=== PATIENT | male | born 1945 | race Caucasian/White ===

== ENCOUNTER 2016-12-03 09:15 | Outpatient (CLI) | payer MEDICARE ==
[2016-12-03] VITALS (14 sets, daily range): BP systolic 141–186; BP diastolic 82–104
[~2016-12-03] VITALS: Ht 175.3 cm; Wt 89.4 kg
[2016-12-03] MEDS ORDERED: PRAV20TA2 PO (09:30)
[2016-12-03] MEDS ORDERED: OMEP40CA5 PO (09:30)
[2016-12-03 09:52] LABS: BASO % 1 % (0-3); EOS % 6 % (0-3); HEMATOCRIT 46.4 % (39.0-53.0); HEMOGLOBIN 15.7 g/dL (13.0-17.5); LYMPH # 0.8 x10^3/uL (1.0-4.8); LYMPH % 18 % (24-48); MEAN CORPUSCULAR HEMOGLOBIN 31 pg (25-35); MEAN CORPUSCULAR HGB CONC 34 g/dL (31-37); MEAN CORPUSCULAR VOLUME 92 fL (79-100); MONO % 10 % (0-9); NEUT % 66 % (31-73); PLATELET COUNT 187 x10^3/uL (140-400); RED BLOOD COUNT 5.06 x10^6/uL (4.30-5.70); WHITE BLOOD COUNT 4.6 x10^3/uL (4.0-11.0)
[2016-12-03 10:03] LABS: PROTHROMBIN TIME PATIENT 12.5 SEC (11.7-14.0)
[2016-12-03 10:43] LABS: CALCIUM 9.4 mg/dL (8.5-10.1); CREATININE 1.1 mg/dL (0.7-1.3)
[2016-12-03] MEDS ORDERED: IOHEXOL 300 MG/ML 100ML VIAL. ONE (11:35)
[2016-12-03] MEDS ORDERED: LIDOCAINE 2% 20 ML VIAL. ONE (11:35)
[2016-12-03] MEDS ORDERED: VERAPAMIL 5 MG/2 ML VIAL. ONE (11:44)
[2016-12-03] MEDS ORDERED: HEPARIN for IV BOLUS 10,000 UNIT/10 ML VIAL. ONE (11:44)
[2016-12-03] MEDS ORDERED: fentaNYL PF VIAL 100 MCG/2 ML VIAL ONE (11:44)
[2016-12-03] MEDS ORDERED: NITROGLYCERIN 200 MCG/2 ML SYRINGE FOR CATH/VASC LAB. ONE (11:44)
[2016-12-03] MEDS ORDERED: MIDAZOLAM HCL/PF 2 MG/2 ML VIAL. ONE (11:44)
[2016-12-03] MEDS ORDERED: NITROGLYCERIN 200 MCG/2 ML SYRINGE FOR CATH/VASC LAB. IART ONE (12:00)
[2016-12-03] MEDS ORDERED: LIDOCAINE 2% 20 ML VIAL. IJ ONE (12:00)
[2016-12-03] MEDS ORDERED: MIDAZOLAM HCL/PF 2 MG/2 ML VIAL. IV ONE (12:00)
[2016-12-03] MEDS ORDERED: fentaNYL PF VIAL 100 MCG/2 ML VIAL IV ONE (12:00)
[2016-12-03] MEDS ORDERED: HEPARIN for IV BOLUS 10,000 UNIT/10 ML VIAL. IART ONE (12:00)
[2016-12-03] MEDS ORDERED: VERAPAMIL 5 MG/2 ML VIAL. IART ONE (12:00)
[2016-12-03] MEDS ORDERED: IV 1/2 NORMAL SALINE 1,000 ML IV SCH (14:10)
--- NOTE | 2016-12-03 14:10 | PDOC ---
MODERATE SEDATION ASSESSMENT RISKS/ALTERNATIVES Risks/Alternatives Risks and alternatives of this type of sedation and procedure discussed with: RISK/ALTERNATIVES: Patient H & P ON CHART H & P H & P on chart and reviewed for co-morbid conditions and appropriate labs. H&P ON CHART: Yes STATUS PREG STATUS ASSESSED: N/A MEDS/ALLERGIES REVIEWED Meds/Allergies Reviewed Medications and Allergies including time and route of recently administered narcotics and sedatives. MEDS/ALLERGIES REVIEWED: Yes ASA RATING ASA RATING: II AIRWAY ASSESSMENT Airway Assessment Airway patency, oral function limitations, presence of caps, crowns, dentures, partials, and ability to extend neck assessed. AIRWAY ASSESSMENT: Yes MALLAMPATI SCORE MALLAMPATI SCORE: II PRE-SEDATION ASSESSMENT PRE-SEDATION ASSESSMENT: Yes LEANNE MANE MD Dec 03, 2016 14:10
[2016-12-03] MEDS ORDERED: NITROGLYCERIN SUBLINGUAL 0.4 MG BOTTLE OF 25. SL PRN (14:15)
--- NOTE | 2016-12-03 14:19 | CARD ---
APPROVED REPORT Procedure(s) performed: Left heart catheterization, selective coronary angiography and left ventricul ography via right transradial approach Moderate Sedation: 37 Minutes INDICATION The indication(s) include : Unstable angina. PROCEDURE NARRATIVE After explaining the risks, benefits and alternative options, informed consent was obtained from bryon ent. Patient was brought to the cardiac Direct Service Provider and right wrist was prepped and draped in the usual fashion after confirming a positive modified Awais's test. Arterial access was obtained in the [facility] t radial artery and a 6 Northern Irish sheath was inserted. 6 Northern Irish Chris and 5 Northern Irish JR4 catheters were used to perform selective angiography of the left and right coronary arteries. 6 Northern Irish pigtail cath eter was used to perform left ventriculography. Patient tolerated the procedure well. Hemostasis wa s achieved using TR band. There were no immediate complications. The following findings were noted. FINDINGS 1. Hemodynamics: Left ventricular end-diastolic pressure of 21 mmHg. No pullback gradient across th e aortic valve. 2. Left ventriculography: Normal left ventricle systolic function with ejection fraction estimated at 60%. No significant mitral regurgitation seen. 3. Coronary angiography: a. The left main coronary artery arose from the left sinus of Valsalva, gave rise to the left anteri or descending, ramus intermedius and left circumflex arteries and did not show any significant stenos is. b. The left anterior descending artery did not show any significant stenosis. c. The ramus intermedius artery was a large caliber vessel that showed 30% stenosis in the proximal segment. d. The left circumflex artery was a small-caliber vessel and showed chronic total occlusion of the o btuse marginal branch with faint reconstitution from left to left collaterals. e. The right coronary artery was a large and dominant vessel arising from the right sinus of Valsalv a that showed 20% stenosis in the proximal segment. Conclusion 1. 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 2. Normal left ventricle systolic function with ejection fraction estimated at 60%. Recommendations Medical Therapy
== END 2016-12-03 15:30 | disposition home or self-care (01) ==
LOC: CCL 09:15
PROVIDERS: ATTEND Internal Medicine Cardiovascular Disease
DX: I20.0 Unstable angina (principal); E78.00 Pure hypercholesterolemia, unspecified; E03.9 Hypothyroidism, unspecified; Z88.1 Allergy status to other antibiotic agents; Z90.49 Acquired absence of other specified parts of digestive tract; Z88.0 Allergy status to penicillin; Z88.2 Allergy status to sulfonamides
CPT/HCPCS: 36415; 80048; 85025; 85610; 93458; 99152; 99153; C1769; C1892; J1644; J2250; J3010; J3490; J2001

== ENCOUNTER → 2017-05-12 | Outpatient (CLI) | payer MEDICARE | END | disposition home or self-care (01) | LOC: ECHO 10:12 | DX: I11.9 Hypertensive heart disease without heart failure (principal); E03.9 Hypothyroidism, unspecified; E78.00 Pure hypercholesterolemia, unspecified | CPT/HCPCS: 93306 ==

== ENCOUNTER → 2018-08-19 | Outpatient (CLI) | payer MEDICARE ==
[2016-12-03 15:15] VITALS: BP 186/104
[~2018-08-19] MED LIST: OMEP40CA5 PO; PRAV20TA2 PO
--- NOTE | 2018-08-19 15:13 | CARD ---
MR#: [id number] Date of Study: 08/19/2018 Ordering Physician: LEANNE BERRIOS, Referring Physician: LEANNE BERRIOS Tech: Alicia Hardwick KEMAR APPROVED REPORT EXAM: Two-dimensional and M-mode echocardiogram with Doppler and color Doppler. Other Information Quality : AverageHR: 50bpm Rhythm : Bradycardia INDICATION CAD 2D DIMENSIONS RVDd3.3 (2.9-3.5cm)Left Atrium(2D)4.6 (1.6-4.0cm) IVSd1.9 (0.7-1.1cm)Aortic Root(2D)3.8 (2.0-3.7cm) LVDd4.0 (3.9-5.9cm)LVOT Diameter2.2 (1.8-2.4cm) PWd1.1 (0.7-1.1cm)LVDs2.3 (2.5-4.0cm) FS (%) 42.2 %SV51.8 ml LVEF(%)70.0 (>50%) M-Mode DIMENSIONS Left Atrium(MM)5.00 (2.5-4.0cm)Aortic Root3.98 (2.2-3.7cm) Aortic Valve AoV Peak Vj.151.6cm/sAoV VTI33.8cm AO Peak GR.9.2mmHgLVOT Peak Vj.90.6cm/s AO Mean GR.5mmHgAVA (VMAX)2.31cm2 Mitral Valve MV E Jwdjitoz77.6cm/sMV DECEL ZYZZ165vg MV A Nuouslxp79.9cm/sE/A Ratio0.8 Pulmonary Valve PV Peak Viprzzfb06.9cm/s Tricuspid Valve TR P. Hmjuudnh069xp/sRAP DOZGQSBY7efDw TR Peak Gr.17qxPzYKIC55jvCr Pulmonary Vein S1 Efqfsbly56.9cm/sD2 Ovopenfs83.9cm/s PVa xzuvxlgs357thnp LEFT VENTRICLE The left ventricle is normal size. Proximal septal thickening is noted. The left ventricular systolic function is normal. The Ejection Fraction is 65-70%. There is normal LV segmental wall motion. Trans mitral Doppler flow pattern is Grade I-abnormal relaxation pattern. RIGHT VENTRICLE The right ventricle is normal size. There is normal right ventricular wall thickness. The right ventr icular systolic function is normal. ATRIA The left atrium is moderately dilated. The right atrium is mildly dilated. The interatrial septum is intact with no evidence for an atrial septal defect or patent foramen ovale as noted on 2-D or Dopple r imaging. AORTIC VALVE The aortic valve is normal in structure and function. The aortic valve is trileaflet. Doppler and Col or Flow revealed no significant aortic regurgitation. There is no significant aortic valvular stenosi s. MITRAL VALVE The mitral valve is normal in structure and function. There is no evidence of mitral valve prolapse. There is no mitral valve stenosis. Doppler and Color-flow revealed trace mitral regurgitation. TRICUSPID VALVE The tricuspid valve is normal in structure and function. Doppler and Color Flow revealed trace tricus pid regurgitation. The PA pressure was estimated at 24 mmHg. There is no tricuspid valve prolapse or vegetation. There is no tricuspid valve stenosis. PULMONIC VALVE The pulmonary valve is normal in structure and function. Doppler and Color Flow revealed trace pulmon ic valvular regurgitation. There is no pulmonic valvular stenosis. GREAT VESSELS The aortic root is mildly enlarged. The ascending aorta is Mildly dilated at 4.3cm. The IVC is normal in size and collapses >50% with inspiration. PERICARDIAL EFFUSION There is no evidence of significant pericardial effusion. Critical Notification Critical Value: No <Conclusion> The left ventricular systolic function is normal. The Ejection Fraction is 65-70%. There is normal LV segmental wall motion. Transmitral Doppler flow pattern is Grade I-abnormal relaxation pattern. Trace mitral regurgitation. Trace tricuspid regurgitation. The PA pressure was estimated at 24 mmHg. The ascending aorta is mildly dilated at 4.3cm. There is no evidence of significant pericardial effusion. Signed by : Leanne Berrios, Electronically Approved : 08/19/2018 15:13:02
== END | disposition home or self-care (01) ==
LOC: ECHO 13:49
PROVIDERS: ATTEND Internal Medicine Cardiovascular Disease
DX: I77.89 Other specified disorders of arteries and arterioles (principal); I25.118 Atherosclerotic heart disease of native coronary artery with other forms of angina pectoris
CPT/HCPCS: 93306

== ENCOUNTER → 2019-02-24 | Outpatient (CLI) | payer MEDICARE ==
[2016-12-03 15:15] VITALS: BP 186/104
[~2019-02-24] MED LIST changes: +OMEP40CA45 PO; -OMEP40CA5 PO; +REGADENOSON 0.4 MG/5 ML DISP.SYRIN. IV ONE
--- NOTE | 2019-02-24 13:28 | RAD ---
MR#: [id number] Date of Study: 02/24/2019 Ordering Physician: LEANNE MANE, Referring Physician: JORDY PELAEZ Tech: ROBIN Barone APPROVED REPORT Test Type: Pharmacological Stress Nurse/Tech: Camille Perales R.N. Test Indications: CAD Cardiac History: high chol, htn, Medications: see ehr Medical History: see ehr Resting ECG: SB Resting Heart Rate: 49 bpm Resting Blood Pressure: 135/91mmHg Pretest Chest Pain: No chest pain Nurse/Tech Notes lungs cta, heart tones regular Consent: The procedure was explained to the patient in lay terms. Informed consent was witnessed. Hossein eout was entered into [employer]. History and Stress Test performed by THUAN Milton, NILSA (R) (N) Pharm. Details Pharmacologic stress testing was performed using 0.4mg per 5ml of regadenoson given intravenously ove r 7-10 seconds. Stress Symptoms No chest pain or symptoms. POST EXERCISE Reason for Termination: Infusion complete Target HR: No Max HR: 68 bpm Max Blood Pressure: 173/91mmHg Chest Pain: No. Arrhythmia: No. ST Change: No. INTERPRETATION Stress EKG Conclusion: The resting EKG showed a sinus bradycardia with nonspecific ST-T wave changes. The stress EKG showed no significant changes from baseline. No EKG evidence of stressed induced ischemia. Imaging Protocol IMAGE PROTOCOL: Rest Tc-99m/stress Tc-99m 1 day Rest: Stress: Viability: Radiopharm.Tc99m IwzcregqlYm80y Sestamibi Bbbt14hMx 33mCi Duration 15min. 13min. Img Date 02/24/2019 02/24/2019 Inj-Img Uwxt08bhr. 60min. Rest Admin Site:IV - Right HandAdministrator:THUAN Milton, NILSA (R)(N) Stress Admin Site: IV - Right HandAdministrator: THUAN Milton, NILSA (R)(N) STRESS DATA End Diast. Vol.110.0mlLVEDV index BSA54.0ml End Syst. Vol.34.0mlLVESV index BSA17.0ml Myocardial Ogcz729.0gEject. Kiybpgue97.0% Stress Scores Regional WT0.00Summed WT5.00 Regional WM0.00Summed WM0.00 LV Perfusion The stress images showed no significant defects. The rest images showed no significant defects. Nuclear imaging shows no reversible ischemia or infarct. Wall Motion Left ventricular systolic function is normal with an ejection fraction of 69%. LV Perf. Quant 17 Seg. SSS0.00 17 Seg. SRS0.00 17 Seg. SDS0.00 Stress Defect Extent (% LAD)0.00Rest Defect Extent (% LAD)5.00Rev. Defect Extent (% LAD)0.00 Stress Defect Extent (% LCX) 0.00Rest Defect Extent (% LCX)10.00Rev. Defect Extent (% LCX)0.00 Stress Defect Extent (% RCA)0.00Rest Defect Extent (% RCA)0.00Rev. Defect Extent (% RCA)0.00 Stress Defect Extent (% SARITA)0.00Rest Defect Extent (% SARITA)3.50Rev. Defect Extent (% SARITA)0.00 Conclusion 1. No EKG evidence of stress-induced ischemia. 2. Nuclear imaging shows no reversible ischemia or infarct. 3. Normal left ventricular systolic function with an ejection fraction of 69%. 4. Low risk Lexiscan nuclear stress test. Signed by : Ashutosh Lombardi MD Electronically Approved : 02/24/2019 13:28:18
== END | disposition home or self-care (01) ==
LOC: NM 09:31
PROVIDERS: ATTEND Internal Medicine Cardiovascular Disease
DX: I25.118 Atherosclerotic heart disease of native coronary artery with other forms of angina pectoris (principal); R00.1 Bradycardia, unspecified; I10 Essential (primary) hypertension; E78.00 Pure hypercholesterolemia, unspecified
CPT/HCPCS: 78452; 93017; A9500; J2785

== ENCOUNTER → 2019-08-25 | Outpatient (CLI) | payer MEDICARE ==
[2016-12-03 15:15] VITALS: BP 186/104
[~2019-08-25] MED LIST changes: -REGADENOSON 0.4 MG/5 ML DISP.SYRIN. IV ONE
--- NOTE | 2019-08-25 11:32 | RAD ---
MR#: [id number] Date of Study: 08/25/2019 Ordering Physician: LEANNE MANE, Referring Physician: LEANNE MANE, Tech: Luigi Bowen MBA, RDMS, RVT, RDCS, RTR APPROVED REPORT Patient Location: OUT-PATIENT Laterality:Bilateral Indications CAD Doppler Spectral Velocity Analysis Right Left pCCA 98/15 cm/spCCA 139/31 cm/s mCCA 125/24 cm/smCCA 121/30 cm/s dCCA 104/24 cm/sdCCA 103/24 cm/s Bulb 94/21 cm/sBulb 91/24 cm/s ECA 83/ cm/sECA 113/ cm/s pICA 79/21 cm/spICA 79/24 cm/s Mattie 69/21 cm/smICA 73/23 cm/s dICA 64/19 cm/sdICA 69/22 cm/s Vert. 48/ cm/sVert. 53/ cm/s Subcl. 184/ cm/sSubcl. 114/ cm/s ICA/CCA 0.63ICA/CCA 0.57 Findings Grayscale images of the bilateral carotid vessels demonstrate mild diffuse intimal hyperplasia and pl aque. No obvious obstructive disease is noted. Normal spectral waveforms and color Doppler are note d. Normal ICA to CCA ratios bilaterally. Critical Notification Critical Value: No <Conclusion> 1. No significant carotid occlusive disease. Signed by : Yazan Cordoba, Electronically Approved : 08/25/2019 11:31:36
--- NOTE | 2019-08-25 13:51 | CARD ---
MR#: [id number] Date of Study: 08/25/2019 Ordering Physician: LEANNE BERRIOS, Referring Physician: LEANNE BERRIOS, Tech: Fallon Powell APPROVED REPORT EXAM: Two-dimensional and M-mode echocardiogram with Doppler and color Doppler. Other Information Quality : AverageHR: 70bpm INDICATION Cardiac Disease: CAD RISK FACTORS Hypertension Hyperlipidemia 2D DIMENSIONS Left Atrium(2D)4.9 (1.6-4.0cm)IVSd1.6 (0.7-1.1cm) Aortic Root(2D)4.0 (2.0-3.7cm)LVDd5.1 (3.9-5.9cm) LVOT Diameter2.2 (1.8-2.4cm)PWd1.3 (0.7-1.1cm) LVDs2.6 (2.5-4.0cm)FS (%) 49.0 % SV98.8 mlLVEF(%)80.2 (>50%) Aortic Valve AoV Peak Vj.150.8cm/sAoV VTI30.0cm AO Peak GR.9.1mmHgLVOT VTI 23.16cm AO Mean GR.5mmHg Mitral Valve MV E Mccqtizy59.7cm/sMV E Peak Gr.3mmHg MV DECEL ZQRY058lsIT A Kjvefmjy54.2cm/s MV E Mean Gr.1mmHgE/A Ratio0.8 TDI Lateral E' P. V3.86cm/sMedial E' P. V5.60cm/s E/Lateral E'15.2E/Medial E'10.5 Tricuspid Valve TR P. Vnezrsqj886rs/sRAP CXDABLFV2rgBk TR Peak Gr.66owQyAIVC96dpJr Pulmonary Vein S1 Moyjeeus11.0cm/sS2 Mpfwuujy47.22cm/s D2 Hgasbdhx07.2cm/sPVa yplwousl811jxup LEFT VENTRICLE The left ventricle is normal size. There is mild to moderate concentric left ventricular hypertrophy. The left ventricular systolic function is normal. The Ejection Fraction is 60-65%. There is normal L V segmental wall motion. Transmitral Doppler flow pattern is Grade I-abnormal relaxation pattern. RIGHT VENTRICLE The right ventricle is normal size. There is normal right ventricular wall thickness. The right ventr icular systolic function is normal. ATRIA The left atrium is borderline dilated. The right atrium is mildly dilated. The interatrial septum is intact with no evidence for an atrial septal defect or patent foramen ovale as noted on 2-D or Dopple r imaging. AORTIC VALVE The aortic valve is normal in structure and function. Doppler and Color Flow revealed no significant aortic regurgitation. There is no significant aortic valvular stenosis. Calculated aortic valve area is 2.9 cm2 with maximum pressure gradient of 9 mmHg and mean pressure gradient of 6 mmHg. MITRAL VALVE The mitral valve is normal in structure and function. There is no evidence of mitral valve prolapse. There is no mitral valve stenosis. Doppler and Color-flow revealed trace mitral regurgitation. TRICUSPID VALVE The tricuspid valve is normal in structure and function. Doppler and Color Flow revealed trace tricus pid regurgitation with an estimated PAP of 29 mmHg. There is no tricuspid valve stenosis. PULMONIC VALVE The pulmonic valve is not well visualized. Doppler and Color Flow revealed no pulmonic valvular regur gitation. GREAT VESSELS The aortic root is mildly enlarged. The IVC is normal in size and collapses >50% with inspiration. PERICARDIAL EFFUSION There is no evidence of significant pericardial effusion. Critical Notification Critical Value: No <Conclusion> The left ventricular systolic function is normal. The Ejection Fraction is 60-65%. There is normal LV segmental wall motion. Transmitral Doppler flow pattern is Grade I-abnormal relaxation pattern. Trace mitral regurgitation. Trace tricuspid regurgitation with an estimated PAP of 29 mmHg. There is no evidence of significant pericardial effusion. Signed by : Leanne Berrios, Electronically Approved : 08/25/2019 13:50:44
== END | disposition home or self-care (01) ==
LOC: US 09:40
PROVIDERS: ATTEND Internal Medicine Cardiovascular Disease
DX: I65.23 Occlusion and stenosis of bilateral carotid arteries (principal); I25.118 Atherosclerotic heart disease of native coronary artery with other forms of angina pectoris; I77.3 Arterial fibromuscular dysplasia; I51.7 Cardiomegaly
CPT/HCPCS: 93306; 93880

== ENCOUNTER → 2019-09-17 | Outpatient (CLI) | payer MEDICARE ==
[2016-12-03 15:15] VITALS: BP 186/104
--- NOTE | 2019-09-17 13:50 | RAD ---
MR#: [id number] Date of Study: 09/17/2019 Ordering Physician: LEANNE MANE, Referring Physician: LEANNE MANE, Tech: Fallon Santiago RDMS, KEARA, RTR APPROVED REPORT Patient Location: OUT-PATIENT Indications Bilateral Leg Pain VELOCITY AND DOPPLER WAVEFORM ANALYSIS RIGHT cm/secWaveformSeverity LEFT cm/secWaveform Severity dCFA 104.1dCFA Prof Fem Art. 80.4Prof Fem Art. 123.1 Fem Art Prox. 112.4Fem Art Prox. 118.2 Fem Art Mid. 111.6Fem Art Mid. 98.3 Fem Art Dist. 129.7Fem Art Dist. 92.5 Pop Art(AK) 77.7Pop Art(AK) 81.8 SAFETY AND HEALTH MANAGER Prox. 48.8PTA Prox. 61.3 SAFETY AND HEALTH MANAGER Dist. 134.6PTA Dist. 103.5 Per Art Prox. 75.2Per Art Prox. 81.6 CHUYITA Prox. 60.7ATA Prox. 32.7 DPA 9DPA 45 Findings Grayscale images of the bilateral lower extremity arterial vessels reveals mild diffuse atheroscleros is. On the right side there are triphasic waveforms with three-vessel runoff below the knee. The dorsali s pedis appears to be near occluded. On the left side mostly triphasic and biphasic waveforms with three-vessel runoff below the knee. Incidental right sided Moreno's cyst noted at 5 x 3 x 1.3 cm Critical Notification Critical Value: No <Conclusion> 1. Distal small vessel disease on the right side but otherwise no focal high-grade obstruction noted Signed by : Yazan Cordoba, Electronically Approved : 09/17/2019 13:49:58
== END ==
LOC: US 15:11
PROVIDERS: ATTEND Internal Medicine Cardiovascular Disease
DX: M71.21 Synovial cyst of popliteal space [Baker], right knee (principal); I73.9 Peripheral vascular disease, unspecified
CPT/HCPCS: 93925

== ENCOUNTER → 2020-08-30 | Outpatient (CLI) | payer MEDICARE ==
[2016-12-03 15:15] VITALS: BP 186/104
[~2020-08-30] MED LIST changes: -OMEP40CA45 PO; +OMEP40CA7 PO
[2020-08-30 12:59] LABS: CHOLESTEROL/HDL RATIO 4.5
--- NOTE | 2020-08-30 17:16 | CARD ---
MR#: [id number] Date of Study: 08/30/2020 Ordering Physician: LEANNE MANE, Referring Physician: LEANNE MANE Tech: Alix Pedraza [facility] APPROVED REPORT EXAM: Two-dimensional and M-mode echocardiogram with Doppler and color Doppler. Other Information Quality : GoodHR: 56bpm Rhythm : NSR INDICATION Palpitations RISK FACTORS Hypertension 2D DIMENSIONS RVDd3.7 (2.9-3.5cm)Left Atrium(2D)4.4 (1.6-4.0cm) IVSd1.8 (0.7-1.1cm)Aortic Root(2D)3.9 (2.0-3.7cm) LVDd4.9 (3.9-5.9cm)LVOT Diameter2.2 (1.8-2.4cm) PWd1.6 (0.7-1.1cm)LVDs3.0 (2.5-4.0cm) FS (%) 39.0 %SV79.3 ml Aortic Valve AoV Peak Vj.143.1cm/sAoV VTI34.7cm AO Peak GR.8.2mmHgLVOT Peak Vj.100.9cm/s AO Mean GR.4mmHgAVA (VMAX)2.71cm2 Mitral Valve MV E Xdurqzfx01.4cm/sMV DECEL OCHS860ie MV A Dbhwbplj21.0cm/sE/A Ratio1.1 Pulmonary Valve PV Peak Agjsiugl82.2cm/s Tricuspid Valve TR P. Rsyzqmlq118sl/sTR Peak Gr.31mmHg LEFT VENTRICLE The left ventricle is normal size. There is mild concentric left ventricular hypertrophy. The left ve ntricular systolic function is normal. Estimated ejection fraction 55-60%. There is normal LV segmen kimberley wall motion. The left ventricular diastolic function and filling is normal for age. RIGHT VENTRICLE The right ventricle is normal size. There is normal right ventricular wall thickness. The right ventr icular systolic function is normal. ATRIA The left atrium size is normal. The right atrium size is normal. The interatrial septum is intact wit h no evidence for an atrial septal defect or patent foramen ovale as noted on 2-D or Doppler imaging. AORTIC VALVE The aortic valve is normal in structure and function. Doppler and Color Flow revealed no significant aortic regurgitation. There is no significant aortic valvular stenosis. MITRAL VALVE The mitral valve is normal in structure and function. There is no evidence of mitral valve prolapse. There is no mitral valve stenosis. Doppler and Color-flow revealed mild mitral regurgitation. TRICUSPID VALVE The tricuspid valve is normal in structure and function. Doppler and Color Flow revealed trace to mil d tricuspid regurgitation. Estimated PAP 35 mmHg. There is no tricuspid valve stenosis. PULMONIC VALVE The pulmonary valve is normal in structure and function. GREAT VESSELS The aortic root is mildly enlarged. The ascending aorta is mldly dilated. The IVC is normal in size a nd collapses >50% with inspiration. PERICARDIAL EFFUSION There is no evidence of significant pericardial effusion. Critical Notification Critical Value: No <Conclusion> The left ventricle is normal size. The left ventricular systolic function is normal. Estimated ejection fraction 55-60%. There is mild concentric left ventricular hypertrophy. Doppler and Color Flow revealed no significant aortic regurgitation. There is no significant aortic valvular stenosis. Doppler and Color-flow revealed mild mitral regurgitation. Doppler and Color Flow revealed trace to mild tricuspid regurgitation. Estimated PAP 35 mmHg. The aortic root is mildly enlarged. Signed by : Ashutosh Lombardi MD Electronically Approved : 08/30/2020 17:16:09
== END ==
LOC: ECHO 10:54
PROVIDERS: ATTEND Internal Medicine Cardiovascular Disease
DX: I08.1 Rheumatic disorders of both mitral and tricuspid valves (principal); E78.5 Hyperlipidemia, unspecified; I25.118 Atherosclerotic heart disease of native coronary artery with other forms of angina pectoris
CPT/HCPCS: 36415; 80061; 93306

== ENCOUNTER → 2021-05-31 | Outpatient (CLI) | payer MEDICARE ==
[2016-12-03 15:15] VITALS: BP 186/104
--- NOTE | 2021-06-01 12:33 | RAD ---
MR#: [id number] Date of Study: 05/31/2021 Ordering Physician: LEANNE BERRIOS, Referring Physician: LEANNE BERRIOS, Tech: Luigi Bowen MBA, RDMS, RVT, RDCS, RTR APPROVED REPORT Patient Location : OUT-PATIENT Indications VENOUS INSUFFICIENCY Greater Saphenous Veins (GSV) Significant venous relux noted in the LEFT GSV at the following levels : Superficial Femoral Junction , Proximal Thigh, Mid Thigh, Distal Thigh, Proximal Calf, Mid Calf, Distal Calf Lesser Saphenous Veins (LSV) Significant venous reflux is noted in the Left LSV. Findings Grayscale images of superficial veins and saphenofemoral junctions both lower extremities were grossl y unremarkable without any evidence of thrombus. Spectral waveform and color duplex analysis showed significant venous reflux involving left greater and lesser saphenous veins. The right greater and l kareen saphenous veins did not show any significant reflux. The left greater saphenous vein measured 6.6 mm at the saphenofemoral junction and showed significant reflux of 3.1 seconds. This vein showed significant reflux from the level of groin all the way to t he level of ankle. The left lesser saphenous vein measured 2.4 cm at the saphenous popliteal junctio n and showed significant reflux of 1.9 seconds. This vein showed reflux all the way up to the ankle. Critical Notification Critical Value: No <Conclusion> Bilateral lower extremity venous reflux study showed significant venous insufficiency involving left greater and lesser saphenous veins. Signed by : Laenne Berrios, Electronically Approved : 06/01/2021 12:33:07
== END ==
LOC: US 12:33
PROVIDERS: ATTEND Internal Medicine Cardiovascular Disease
DX: I87.2 Venous insufficiency (chronic) (peripheral) (principal)
CPT/HCPCS: 93970